=== PATIENT | male | born 1960 | race Caucasian/White ===

== ENCOUNTER 2019-11-15 09:41 | Emergency (ER) | payer OTHER ==
--- NOTE | 2019-11-15 10:23 | EDM.PDOC ---
ED HPI GENERAL MEDICAL PROBLEM - General Chief Complaint: General Stated Complaint: CHILLS, FATIGUE Time Seen by Provider: 11/15/19 10:09 Source of Information: Reports: Patient, RN Notes Reviewed History Limitations: Reports: No Limitations - History of Present Illness INITIAL COMMENTS - FREE TEXT/NARRATIVE: 59-year-old gentleman presents emergency department today requesting COVID testing he is not aware of any active exposure but he has felt chilled fatigued sore throat over the last 2 days no fever - Related Data Allergies Allergy/AdvReac Type Severity Reaction Status Date / Time No Known Allergies Allergy Verified 11/15/19 10:00 Home Meds: Home Meds NK [No Known Home Meds] 11/15/19 [History] Past Medical History - Past Surgical History Musculoskeletal Surgical History: Reports: Arthroscopic Knee Social & Family History - Tobacco Use Smoking Status *Q: Never Smoker ED ROS GENERAL - Review of Systems Review Of Systems: See Below Constitutional: Reports: Chills, Fatigue HEENT: Reports: Throat Pain Respiratory: Reports: No Symptoms Cardiovascular: Reports: No Symptoms GI/Abdominal: Reports: No Symptoms : Reports: No Symptoms Musculoskeletal: Reports: No Symptoms ED EXAM, GENERAL - Physical Exam Exam: See Below Exam Limited By: No Limitations General Appearance: Alert, WD/WN, No Apparent Distress Eye Exam: Bilateral Eye: Normal Inspection Ears: Normal External Exam, Normal Canal, Hearing Grossly Normal, Normal TMs Nose: Normal Inspection, Normal Mucosa, No Blood Throat/Mouth: Normal Inspection, Normal Lips, Normal Teeth, Normal Gums, Normal Oropharynx, Normal Voice, No Airway Compromise Head: Atraumatic, Normocephalic Neck: Normal Inspection, Supple, Non-Tender, Full Range of Motion Respiratory/Chest: No Respiratory Distress, Lungs Clear, Normal Breath Sounds, No Accessory Muscle Use, Chest Non-Tender Cardiovascular: Regular Rate, Rhythm, No Murmur GI/Abdominal: Soft, Non-Tender Back Exam: Normal Inspection, Full Range of Motion. No: CVA Tenderness (R), Paraspinal Tenderness Extremities: Normal Inspection, No Pedal Edema Neurological: Alert, Oriented Course - Vital Signs Last Recorded V/S: Last Vital Signs Temp 97.1 F 11/15/19 10:03 Pulse 67 11/15/19 10:03 Resp 14 11/15/19 10:03 BP 111/75 11/15/19 10:03 Pulse Ox 99 11/15/19 10:03 - Orders/Labs/Meds Orders: Active Orders 24 hr Category Date Time Status CORONAVIRUS COVID-19, EZIO Stat Lab 11/15/19 10:18 Ordered Isolation [COMM] Stat Oth 11/15/19 10:19 Ordered Labs: Laboratory Tests 11/15/19 11/15/19 11/15/19 Range/Units 10:30 10:30 10:30 WBC 9.5 (4.5-11.0) K/uL RBC 3.99 L (4.30-5.90) M/uL Hgb 12.7 (12.0-15.0) g/dL Hct 39.8 L (40.0-54.0) % MCV 100 H (80-98) fL MCH 32 H (27-31) pg MCHC 32 (32-36) % Plt Count 270 (150-400) K/uL Neut % (Auto) 83 H (36-66) % Lymph % (Auto) 8 L (24-44) % [place] % (Auto) 9 H (2-6) % Eos % (Auto) 1 L (2-4) % Baso % (Auto) 0 (0-1) % Sodium (140-148) mmol/L Potassium (3.6-5.2) mmol/L Chloride (100-108) mmol/L Carbon Dioxide (21-32) mmol/L Anion Gap (5.0-14.0) mmol/L BUN (7-18) mg/dL Creatinine (0.8-1.3) mg/dL Est Cr Clr Drug Dosing mL/min Estimated GFR (MDRD) (>60) Glucose (74-106) mg/dL Lactic Acid 1.4 (0.4-2.0) mmol/L Calcium (8.5-10.1) mg/dL Total Bilirubin (0.2-1.0) mg/dL AST (15-37) U/L ALT (12-78) U/L Alkaline Phosphatase (46-116) U/L Lactate Dehydrogenase 129 (85-227) U/L C-Reactive Protein 0.59 H (0.0-0.3) mg/dL Total Protein (6.4-8.2) g/dL Albumin (3.4-5.0) g/dL Globulin (2.3-3.5) g/dL Albumin/Globulin Ratio (1.2-2.2) 11/15/19 Range/Units 10:30 WBC (4.5-11.0) K/uL RBC (4.30-5.90) M/uL Hgb (12.0-15.0) g/dL Hct (40.0-54.0) % MCV (80-98) fL MCH (27-31) pg MCHC (32-36) % Plt Count (150-400) K/uL Neut % (Auto) (36-66) % Lymph % (Auto) (24-44) % [place] % (Auto) (2-6) % Eos % (Auto) (2-4) % Baso % (Auto) (0-1) % Sodium 142 (140-148) mmol/L Potassium 4.2 (3.6-5.2) mmol/L Chloride 103 (100-108) mmol/L Carbon Dioxide 32 (21-32) mmol/L Anion Gap 7.4 (5.0-14.0) mmol/L BUN 15 (7-18) mg/dL Creatinine 1.0 (0.8-1.3) mg/dL Est Cr Clr Drug Dosing 66.60 mL/min Estimated GFR (MDRD) > 60 (>60) Glucose 132 H (74-106) mg/dL Lactic Acid (0.4-2.0) mmol/L Calcium 8.7 (8.5-10.1) mg/dL Total Bilirubin 0.6 (0.2-1.0) mg/dL AST 19 (15-37) U/L ALT 24 (12-78) U/L Alkaline Phosphatase 63 (46-116) U/L Lactate Dehydrogenase (85-227) U/L C-Reactive Protein (0.0-0.3) mg/dL Total Protein 7.1 (6.4-8.2) g/dL Albumin 3.7 (3.4-5.0) g/dL Globulin 3.4 (2.3-3.5) g/dL Albumin/Globulin Ratio 1.1 L (1.2-2.2) Departure - Departure Time of Disposition: 12:01 Disposition: Home, Self-Care 01 Condition: Fair Clinical Impression: Fatigue Qualifiers: Fatigue type: unspecified Qualified Code(s): R53.83 - Other fatigue - Discharge Information Instructions: Fatigue Referrals: PCP,None [Primary Care Provider] - Forms: ED Department Discharge Additional Instructions: Continue with symptomatic care, please followup with your primary care provider in 5-7 days if not better, please call return to the emergency department with worsening of symptoms. We will contact you when the COVID test results becomes available Sepsis Event Note (ED) - Evaluation Sepsis Screening Result: No Definite Risk - Focused Exam Vital Signs: Vital Signs Temp Pulse Resp BP Pulse Ox 11/15/19 10:03 97.1 F 67 14 111/75 99 11/15/19 09:55 97.1 F 67 14 111/75 99 - My Orders Last 24 Hours: My Active Orders 11/15/19 10:18 CORONAVIRUS COVID-19, EZIO Stat 11/15/19 10:19 Isolation [COMM] Stat - Assessment/Plan Last 24 Hours: My Active Orders 11/15/19 10:18 CORONAVIRUS COVID-19, EZIO Stat 11/15/19 10:19 Isolation [COMM] Stat Plan: Assessment Acuity = acute Site and laterality = fatigue Etiology = unknown Manifestations = none Location of injury = Home Lab values = CBC, CMP unremarkable, COVID test pending Plan Did review lab work with him results of the COVID test will show up in about 5 days follow-up primary care 5 to 7 days if not better This note was dictated using [employer] voice recognition software please call with any questions on syntax or grammar.
== END 2019-11-15 12:30 | disposition home or self-care (01) ==
LOC: JP.ED 09:41
DX: R53.83 Other fatigue (principal); Z20.828 Contact with and (suspected) exposure to other viral communicable diseases
CPT/HCPCS: 36415; 80053; 83605; 83615; 85025; 86140; 99282; 99283; U0002

== ENCOUNTER 2024-11-11 12:44 | Emergency (ER) | payer MEDICARE, OTHER ==
[2024-11-11] MEDS: Lidocaine 1% with EPINEPHrine 1:100,000 20 ML MDV INJECT ONE (15:09)
== END 2024-11-11 15:40 | disposition home or self-care (01) ==
LOC: JP.ED 12:44
DX: S16.1XXA Strain of muscle, fascia and tendon at neck level, initial encounter (principal); S01.01XA Laceration without foreign body of scalp, initial encounter; S40.811A Abrasion of right upper arm, initial encounter; Z79.899 Other long term (current) drug therapy; W11.XXXA Fall on and from ladder, initial encounter
CPT/HCPCS: 12002; 70450; 72125; 76377; 99283; J2004